=== PATIENT | male | born 1980 | race Hispanic/Latino ===

== ENCOUNTER 2021-06-12 10:43 | Emergency (ER) | payer OTHER ==
[~2021-06-12] VITALS: Ht 177.8 cm; Wt 90.7 kg
[2021-06-12] MEDS ORDERED: CASIRIVIMAB/IMDEVIMAB 10 ML in SODIUM CHLORIDE 0.9% 100 ML IV ONE (11:00)
[2021-06-12] MEDS ORDERED: SODIUM CHLORIDE 0.9% 100 ML ONE (11:01)
[2021-06-12 11:45] VITALS: BP 124/76
== END 2021-06-12 11:41 | disposition home or self-care (01) ==
LOC: ER 10:55
DX: R05 Cough (principal); U07.1 COVID-19
CPT/HCPCS: 99283; J7050